=== PATIENT | female | born 1945 | race Caucasian/White ===

== ENCOUNTER 2020-04-02 19:46 | Emergency (ER) | payer MEDICARE, OTHER ==
[~2020-04-02] VITALS: Ht 154 cm; Wt 698.8 kg
--- NOTE | 2020-04-02 19:57 | ED Abdominal Pain ---
General Chief Complaint: Abdominal/GI Problems Stated Complaint: ABD PAIN,VOMITING Source of Information: Patient, Old Records, RN/MD Exam Limitations: No Limitations History of Present Illness Date Seen by Provider: Apr 02, 2020 Time Seen by Provider: 19:55 Initial Comments This patient is a 75-year-old female presents to the emergency department complaining of abdominal pain. Patient states she was seen in urgent care earlier today and diagnosed with urinary tract infection and started on Bactrim. Patient states her hurt in her abdomen in the right flank barnard across her midabdomen. Patient also describes dyspnea on exertion but has had this for some time and has an appointment with her mill controller tomorrow. We'll do medical evaluation treatment is needed. Patient denies fever. Timing/Duration: 1-3 Hours Severity/Quality: Mild Location: Epigastric Radiation: No Radiation Activities at Onset: Activity Associated Symptoms: Denies Symptoms Allergies and Home Medications Allergies Coded Allergies: No Known Allergies (Verified Allergy, Unknown, 04/02/20) Patient Home Medication List Home Medication List Reviewed: Yes Review of Systems Review of Systems Constitutional: No no symptoms reported; see HPI; No chills, No diaphoresis, No dizziness, No fever, No malaise, No weakness, No weight gain, No weight loss, No other EENTM: No No Symptoms Reported, No See HPI, No Blurred Vision, No Double Vision, No Eye Pain, No Eye Tearing, No Ear Drainage, No Ear Pain, No Mouth Pain, No Mouth Swelling, No Nose Congestion, No Nose Pain, No Throat Pain, No Throat Swelling, No Other Respiratory: Denies No Symptoms Reported; See HPI; Denies Cough, Denies Orthopnea; Shortness of Air, SOA With Exertion; Denies SOA at Rest, Denies Stridor, Denies Wheezing, Denies Other Cardiovascular: Denies No Symptoms Reported, Denies See HPI, Denies Chest Pain, Denies Edema, Denies Irregular Heart Rate, Denies Lightheadedness, Denies Palpitations, Denies Syncope, Denies Other Gastrointestinal: Denies No Symptoms Reported, Denies See HPI; Abdomen Distended; Denies Abdominal Pain, Denies Blood Streaked Stools, Denies Constipated, Denies Diarrhea, Denies Difficulty Swallowing, Denies Nausea, Denies Poor Appetite, Denies Poor Fluid Intake, Denies Rectal Bleeding, Denies Vomiting, Denies Other Genitourinary: No Symptoms Reported; Denies See HPI, Denies Burning, Denies Discharge, Denies Drainage; Frequency; Denies Flank Pain, Denies Hematuria, Denies Incontinence, Denies Pain, Denies Urgency, Denies Other Musculoskeletal: No no symptoms reported, No see HPI, No back pain, No gout, No joint pain, No joint swelling, No muscle pain, No muscle stiffness, No muscle cramps, No muscle twitching, No muscle weakness, No neck pain, No other Skin: No no symptoms reported, No see HPI, No change in color, No change in hair/nails, No dryness, No hx of skin cancer, No lesions, No lumps, No pruritus, No rash, No other All Other Systems Reviewed Negative Unless Noted: Yes Past Nmxgkky-Idkoxe-Snjvyy Hx Patient Social History Recent Foreign Travel: No Contact w/Someone Who Travel: No Physical Exam Vital Signs Vital Signs - First Documented 04/02/20 20:00 Temp 36.7 Pulse 66 Resp 12 B/P (MAP) 160/87 (111) Pulse Ox 96 O2 Delivery Room Air Capillary Refill : Height/Weight/BMI Height: '" Weight: lbs. oz. kg; BMI Method: General Appearance: WD/WN, no apparent distress Respiratory: chest non-tender, lungs clear, normal breath sounds, no respiratory distress, no accessory muscle use Cardiovascular: normal peripheral pulses, regular rate, rhythm, no edema, no gallop, no JVD, no murmur Gastrointestinal: normal bowel sounds, non tender, soft, no organomegaly, no pulsatile mass Neurologic/Psychiatric: electric blanket packer II-XII nml as tested, no motor/sensory deficits, alert, normal mood/affect, oriented x 3 Skin: normal color, warm/dry Progress/Results/Core Measures Results/Orders Lab Results Laboratory Tests Test 04/02/20 20:00 Range/Units White Blood Count 13.4 H 4.3-11.0 10^3/uL Red Blood Count 4.68 4.35-5.85 10^6/uL Hemoglobin 14.4 11.5-16.0 G/DL Hematocrit 41 35-52 % Mean Corpuscular Volume 88 80-99 FL Mean Corpuscular Hemoglobin 31 25-34 PG Mean Corpuscular Hemoglobin Concent 35 32-36 G/DL Red Cell Distribution Width 11.8 10.0-14.5 % Platelet Count 199 130-400 10^3/uL Mean Platelet Volume 9.5 7.4-10.4 FL Neutrophils (%) (Auto) 81 H 42-75 % Lymphocytes (%) (Auto) 7 L 12-44 % Monocytes (%) (Auto) 11 0-12 % Eosinophils (%) (Auto) 1 0-10 % Basophils (%) (Auto) 0 0-10 % Neutrophils # (Auto) 10.8 H 1.8-7.8 X 10^3 Lymphocytes # (Auto) 0.9 L 1.0-4.0 X 10^3 Monocytes # (Auto) 1.4 H 0.0-1.0 X 10^3 Eosinophils # (Auto) 0.1 0.0-0.3 10^3/uL Basophils # (Auto) 0.1 0.0-0.1 10^3/uL Neutrophils % (Manual) 81 % Lymphocytes % (Manual) 10 % Monocytes % (Manual) 7 % Eosinophils % (Manual) 0 % Basophils % (Manual) 1 % Band Neutrophils 1 % Sodium Level 137 135-145 MMOL/L Potassium Level 4.0 3.6-5.0 MMOL/L Chloride Level 104 98-107 MMOL/L Carbon Dioxide Level 19 L 21-32 MMOL/L Anion Gap 14 5-14 MMOL/L Blood Urea Nitrogen 12 7-18 MG/DL Creatinine 0.81 0.60-1.30 MG/DL Estimat Glomerular Filtration Rate > 60 BUN/Creatinine Ratio 15 Glucose Level 121 H 70-105 MG/DL Calcium Level 10.0 8.5-10.1 MG/DL Corrected Calcium 9.7 8.5-10.1 MG/DL Total Bilirubin 0.8 0.1-1.0 MG/DL Aspartate Amino Transf (AST/SGOT) 17 5-34 U/L Alanine Aminotransferase (ALT/SGPT) 13 0-55 U/L Alkaline Phosphatase 103 40-136 U/L Troponin I < 0.30 <0.30 NG/ML Pro-B-Type Natriuretic Peptide 343.6 H <75.0 PG/ML Total Protein 6.8 6.4-8.2 GM/DL Albumin 4.4 3.2-4.5 GM/DL Lipase 56 8-78 U/L My Orders Orders - KIERA TOTH MD Ed Iv/Invasive Line Start (7/27/20 19:54) Cbc With Automated Diff (04/02/20 19:54) Comprehensive Metabolic Panel (04/02/20 19:54) Lipase (04/02/20 19:54) Probnp Fs (04/02/20 19:54) Troponin I Fs (04/02/20 19:54) Ekg Tracing (04/02/20 19:54) Acute Abd Series (04/02/20 19:54) Ns Iv 500 Ml (Sodium Chloride 0.9%) (04/02/20 20:06) Ondansetron Injection (Zofran Injectio (04/02/20 20:15) Ketorolac Injection (Toradol Injection) (04/02/20 20:15) Manual Differential (04/02/20 20:00) Medications Given in ED Current Medications Medications Dose Ordered Sig/Jm Route Start Time Stop Time Status Last Admin Dose Admin Ketorolac Tromethamine 15 mg ONCE ONCE IV 04/02/20 20:15 04/02/20 20:16 DC 04/02/20 20:20 15 MG Ondansetron HCl 4 mg ONCE ONCE IVP 04/02/20 20:15 04/02/20 20:16 DC 04/02/20 20:20 4 MG Vital Signs/I&O 04/02/20 20:00 Temp 36.7 Pulse 66 Resp 12 B/P (MAP) 160/87 (111) Pulse Ox 96 O2 Delivery Room Air Progress Progress Note : Time: 21:27 Progress Note Negative evaluation in the emergency department for anything acute. Patient had a urinary tract infection diagnosed earlier today she did not repeat the urine in the emergency department. Patient believes that she is not tolerating the antibiotics back, they gave her earlier. Patient did not have any abdominal pain until that. We did discuss at length with patient about options. Patient states pain is much better after taking Toradol. We will change patient's antibiotics to Keflex twice daily for the next 5 days. Patient is to continue all of her home medications and follow-up with her mill controller as scheduled this week. Patient is also to follow up with her PCP. Patient be discharged home Initial ECG Impression Date: Apr 02, 2020 Initial ECG Impression Time: 20:21 Initial ECG Rate: 63 Initial ECG Rhythm: Normal Sinus Initial ECG Intervals: TN Initial ECG Impression: Nonspecific Changes Comment Sinus rhythm with a prolonged prolonged TN interval borderline left axis deviation nonspecific T-wave changes. Nondiagnostic EKG. Departure Impression Primary Impression: Abdominal pain Additional Impression: Urinary tract infection Disposition: 01 HOME, SELF-CARE Condition: Stable Departure-Patient Inst. Decision time for Depature: 21:28 Referrals: KOMAL HAINES APRN (PCP) Primary Care Physician Patient Instructions: Urinary Tract Infection, Adult (DC), Severe Abdominal Pain, Adult (DC) Add. Discharge Instructions: Encourage by mouth fluids. Advance diet as tolerated. Stop anabiotic sever given today. We'll replace with Keflex twice daily. May start in the morning. Take all medications as instructed. Follow-up with your PCP in 2-3 days and follow-up with her mill controller this week as scheduled. All discharge instructions reviewed with patient and/or family. Voiced understanding. Scripts Diclofenac Sodium (Diclofenac Sodium) 75 Mg Tablet.dr 75 MG PO BID for 10 Days, #20 TAB 0 Refills Prov: KIERA TOTH MD 04/02/20 Cephalexin (Cephalexin) 500 Mg Tablet 500 MG PO BID, #10 TAB 0 Refills Prov: KIERA TOTH MD 04/02/20 KIERA TOTH MD Apr 02, 2020 19:57
[2020-04-02] MEDS ORDERED: NS IV 500 ML 500 ML IV STA (20:06)
[2020-04-02] MEDS ORDERED: KETOROLAC 60 MG/2 ML VIAL IV ONE (20:15)
[2020-04-02] MEDS ORDERED: ONDANSETRON 4 MG/2 ML (SDV) Z0FRAN IVP ONE (20:15)
[2020-04-02 20:26] LABS: WHITE BLOOD COUNT 13.4 10^3/uL (4.3-11.0)
[2020-04-02 20:27] LABS: BASOPHILS % (AUTO) 0 % (0-10); EOSINOPHILS % (AUTO) 1 % (0-10); HEMATOCRIT 41 % (35-52); HEMOGLOBIN 14.4 G/DL (11.5-16.0); LYMPHOCYTES % (AUTO) 7 % (12-44); MEAN CORPUSCULAR HEMOGLOBIN 31 PG (25-34); MEAN CORPUSCULAR HGB CONC 35 G/DL (32-36); MEAN CORPUSCULAR VOLUME 88 FL (80-99); MEAN PLATELET VOLUME 9.5 FL (7.4-10.4); MONOCYTES % (AUTO) 11 % (0-12); NEUTROPHILS % (AUTO) 81 % (42-75); PLATELET COUNT 199 10^3/uL (130-400); RED CELL DISTRIBUTION WIDTH 11.8 % (10.0-14.5)
[2020-04-02 20:28] LABS: BASOPHILS # (AUTO) 0.1 10^3/uL (0.0-0.1); EOSINOPHILS # (AUTO) 0.1 10^3/uL (0.0-0.3); LYMPHOCYTES # (AUTO) 0.9 X 10^3 (1.0-4.0); MONOCYTES # (AUTO) 1.4 X 10^3 (0.0-1.0); NEUTROPHILS # (AUTO) 10.8 X 10^3 (1.8-7.8)
--- NOTE | 2020-04-02 20:30 | Diagnostic Imaging Report ---
INDICATION: Abdominal pain Lungs appear clear, bilaterally. Overall bowel gas pattern is unremarkable. Surgical clip is seen in the right lower quadrant. There are also surgical findings in the right hip with degenerative findings in the left hip. Calcifications in the right mid abdomen may represent renal stones. IMPRESSION: No definite acute abnormality is identified. Dictated by: Dictated on workstation # [id number]
[2020-04-02 20:56] LABS: BILIRUBIN,TOTAL 0.8 MG/DL (0.1-1.0); BUN/CREATININE RATIO 15; CARBON DIOXIDE 19 MMOL/L (21-32); CHLORIDE 104 MMOL/L (98-107); CREATININE SERUM 0.81 MG/DL (0.60-1.30); GFR ESTIMATED > 60; GLUCOSE 121 MG/DL (70-105); SODIUM 137 MMOL/L (135-145)
[2020-04-02 20:57] LABS: ALANINE AMINOTRANSFERASE 13 U/L (0-55); ALBUMIN 4.4 GM/DL (3.2-4.5); ALKALINE PHOSPHATASE 103 U/L (40-136); LIPASE 56 U/L (8-78); TOTAL PROTEIN 6.8 GM/DL (6.4-8.2)
[2020-04-02 21:12] LABS: BAND NEUTROPHILS 1 %; BASOPHILS % (MANUAL) 1 %; EOSINOPHILS % (MANUAL) 0 %; LYMPHOCYTES % (MANUAL) 10 %; MONOCYTES % (MANUAL) 7 %; NEUTROPHILS % (MANUAL) 81 %
[2020-04-02] MEDS ORDERED: DICL75TA2 PO (21:29)
[2020-04-02] MEDS ORDERED: CEPH500T PO (21:29)
[2020-04-02 21:32] VITALS: BP 164/81
--- OUTSIDE RECORDS SUMMARY | 2020-04-02 21:47 | XMS REPORT | Continuity of Care Document ---
Author Organization Unknown Address Unknown Phone Unavailable Allergies There is no data. Medications There is no data. Problems There is no data. Procedures There is no data. Results Test Result Range LIPID PANEL - 03/03/19 08:11 CHOLESTEROL, TOTAL 167 mg/dL <200 HDL CHOLESTEROL 44 mg/dL >50 TRIGLYCERIDES 181 mg/dL <150 LDL-CHOLESTEROL 95 mg/dL (calc) NRG CHOL/HDLC RATIO 3.8 (calc) <5.0 NON HDL CHOLESTEROL 123 mg/dL (calc) <13 0 CMP - 03/03/19 08:11 GLUCOSE 92 mg/dL 65-99 UREA NITROGEN (BUN) 16 mg/dL 7-25 CREATININE 0.73 mg/dL 0.60-0.93 eGFR NON-AFR. LAO 82 mL/min/1.73m2 > OR = 60 eGFR 95 mL/min/1.73m2 > OR = 60 BUN/CREATININE RATIO NOT APPLICABLE (calc) 6-22 SODIUM 144 mmol/L 135-146 POTASSIUM 4.3 mmol/L 3.5-5.3 CHLORIDE 108 mmol/L 98-110 CARBON DIOXIDE 26 mmol/L 20-32 CALCIUM 9.9 mg/dL 8.6-10.4 PROTEIN, TOTAL 6.7 g/dL 6.1-8.1 ALBUMIN 4.6 g/dL 3.6-5.1 GLOBULIN 2.1 g/dL (calc) 1.9-3.7 ALBUMIN/GLOBULIN RATIO 2.2 (calc) 1.0-2. 5 BILIRUBIN, TOTAL 0.8 mg/dL 0.2-1.2 ALKALINE PHOSPHATASE 108 U/L 33-130 AST 20 U/L 10-35 ALT 16 U/L 6-29 CBC w/MANUAL DIFF - 03/03/19 08:11 WHITE BLOOD CELL COUNT 6.3 Thousand/uL 3 .8-10.8 RED BLOOD CELL COUNT 4.98 Million/uL 3.8 0-5.10 HEMOGLOBIN 15.3 g/dL 11.7-15.5 HEMATOCRIT 46.4 % 35.0-45.0 MCV 93.2 fL 80.0-100.0 MCH 30.7 pg 27.0-33.0 MCHC 33.0 g/dL 32.0-36.0 RDW 12.5 % 11.0-15.0 PLATELET COUNT 220 Thousand/uL 140-400 MPV 9.4 fL 7.5-12.5 ABSOLUTE NEUTROPHILS 3793 cells/uL 1500- 7800 ABSOLUTE MONOCYTES 353 cells/uL 200-950 ABSOLUTE EOSINOPHILS 233 cells/uL 15-500 ABSOLUTE BASOPHILS 57 cells/uL 0-200 NEUTROPHILS 60.2 % NRG LYMPHOCYTES 27.8 % NRG MONOCYTES 5.6 % NRG EOSINOPHILS 3.7 % NRG BASOPHILS 0.9 % NRG ABSOLUTE BAND NEUTROPHILS 113 cells/uL 0 -750 ABSOLUTE LYMPHOCYTES 1751 cells/uL 850-3 900 BAND NEUTROPHILS 1.8 % NRG PLATELET ESTIMATION ADEQUATE ADEQUATE COMMENT(S) NRG TSH - 03/03/19 08:11 TSH 2.72 mIU/L 0.40-4.50 CBC w/MANUAL DIFF - 05/12/19 10:15 WHITE BLOOD CELL COUNT 6.0 Thousand/uL 3 .8-10.8 RED BLOOD CELL COUNT 4.78 Million/uL 3.8 0-5.10 HEMOGLOBIN 14.9 g/dL 11.7-15.5 HEMATOCRIT 44.6 % 35.0-45.0 MCV 93.3 fL 80.0-100.0 MCH 31.2 pg 27.0-33.0 MCHC 33.4 g/dL 32.0-36.0 RDW 12.1 % 11.0-15.0 PLATELET COUNT 232 Thousand/uL 140-400 MPV 9.3 fL 7.5-12.5 ABSOLUTE NEUTROPHILS 3318 cells/uL 1500- 7800 ABSOLUTE MONOCYTES 510 cells/uL 200-950 ABSOLUTE EOSINOPHILS 126 cells/uL 15-500 ABSOLUTE BASOPHILS 0 cells/uL 0-200 NEUTROPHILS 55.3 % NRG LYMPHOCYTES 34.1 % NRG MONOCYTES 8.5 % NRG EOSINOPHILS 2.1 % NRG BASOPHILS 0 % NRG ABSOLUTE LYMPHOCYTES 2046 cells/uL 850-3 900 PLATELET ESTIMATION ADEQUATE ADEQUATE COMMENT(S) NRG TSH - 05/12/19 10:15 TSH 1.68 mIU/L 0.40-4.50 CMP - 08/19/19 10:31 GLUCOSE 93 mg/dL 65-99 UREA NITROGEN (BUN) 14 mg/dL 7-25 CREATININE 0.75 mg/dL 0.60-0.93 eGFR NON-AFR. LAO 80 mL/min/1.73m2 > OR = 60 eGFR 92 mL/min/1.73m2 > OR = 60 BUN/CREATININE RATIO NOT APPLICABLE (calc) 6-22 SODIUM 140 mmol/L 135-146 POTASSIUM 4.1 mmol/L 3.5-5.3 CHLORIDE 108 mmol/L 98-110 CARBON DIOXIDE 26 mmol/L 20-32 CALCIUM 10.2 mg/dL 8.6-10.4 PROTEIN, TOTAL 6.6 g/dL 6.1-8.1 ALBUMIN 4.4 g/dL 3.6-5.1 GLOBULIN 2.2 g/dL (calc) 1.9-3.7 ALBUMIN/GLOBULIN RATIO 2.0 (calc) 1.0-2. 5 BILIRUBIN, TOTAL 0.7 mg/dL 0.2-1.2 ALKALINE PHOSPHATASE 122 U/L 33-130 AST 17 U/L 10-35 ALT 13 U/L 6 LIPID PANEL - 10/31/19 08:22 CHOLESTEROL, TOTAL 176 mg/dL <200 HDL CHOLESTEROL 42 mg/dL > OR = 50 TRIGLYCERIDES 200 mg/dL <150 LDL-CHOLESTEROL 102 mg/dL (calc) NRG CHOL/HDLC RATIO 4.2 (calc) <5.0 NON HDL CHOLESTEROL 134 mg/dL (calc) <13 0 CMP - 10/31/19 08:22 GLUCOSE 102 mg/dL 65-99 UREA NITROGEN (BUN) 13 mg/dL 7-25 CREATININE 0.74 mg/dL 0.60-0.93 eGFR NON-AFR. LAO 81 mL/min/1.73m2 > OR = 60 eGFR 94 mL/min/1.73m2 > OR = 60 BUN/CREATININE RATIO NOT APPLICABLE (calc) 6-22 SODIUM 141 mmol/L 135-146 POTASSIUM 4.5 mmol/L 3.5-5.3 CHLORIDE 107 mmol/L 98-110 CARBON DIOXIDE 26 mmol/L 20-32 CALCIUM 10.2 mg/dL 8.6-10.4 PROTEIN, TOTAL 6.7 g/dL 6.1-8.1 ALBUMIN 4.6 g/dL 3.6-5.1 GLOBULIN 2.1 g/dL (calc) 1.9-3.7 ALBUMIN/GLOBULIN RATIO 2.2 (calc) 1.0-2. 5 BILIRUBIN, TOTAL 0.9 mg/dL 0.2-1.2 ALKALINE PHOSPHATASE 114 U/L 37-153 AST 17 U/L 10-35 ALT 15 U/L 6-29 LIPID PANEL - 02/01/20 07:10 CHOLESTEROL, TOTAL 157 mg/dL <200 HDL CHOLESTEROL 42 mg/dL > OR = 50 TRIGLYCERIDES 182 mg/dL <150 LDL-CHOLESTEROL 87 mg/dL (calc) NRG CHOL/HDLC RATIO 3.7 (calc) <5.0 NON HDL CHOLESTEROL 115 mg/dL (calc) <13 0 CMP - 02/01/20 07:10 GLUCOSE 98 mg/dL 65-99 UREA NITROGEN (BUN) 14 mg/dL 7-25 CREATININE 0.83 mg/dL 0.60-0.93 eGFR NON-AFR. LAO 70 mL/min/1.73m2 > OR = 60 eGFR 81 mL/min/1.73m2 > OR = 60 BUN/CREATININE RATIO NOT APPLICABLE (calc) 6-22 SODIUM 140 mmol/L 135-146 POTASSIUM 4.0 mmol/L 3.5-5.3 CHLORIDE 107 mmol/L 98-110 CARBON DIOXIDE 25 mmol/L 20-32 CALCIUM 10.4 mg/dL 8.6-10.4 PROTEIN, TOTAL 6.5 g/dL 6.1-8.1 ALBUMIN 4.6 g/dL 3.6-5.1 GLOBULIN 1.9 g/dL (calc) 1.9-3.7 ALBUMIN/GLOBULIN RATIO 2.4 (calc) 1.0-2. 5 BILIRUBIN, TOTAL 0.5 mg/dL 0.2-1.2 ALKALINE PHOSPHATASE 102 U/L 37-153 AST 22 U/L 10-35 ALT 16 U/L 6-29 Encounters ACCT No. Visit Date/Time Discharge Status Pt. Type Provider Facility Loc./Unit Complaint [id number] 04/02/2020 13:20:00 [id number] 02/01/2020 07:00:00 Document Registration [id number] 10/31/2019 08:15:00 Document Registration [id number] 08/19/2019 09:15:00 Document Registration [id number] 05/12/2019 10:00:00 Document Registration [id number] 03/03/2019 08:15:00 Document Registration
--- OUTSIDE RECORDS SUMMARY | 2020-04-02 21:47 | XMS REPORT ---
Author Author Oma SWIFT Organization [facility] Address [address] [place] [address] Care Team Providers Care Oracle Programmer Name Role Phone JAZ SWIFT Unavailable PROBLEMS Type Condition ICD9-CM Code VQC65-NH Code Onset Dates Condition S tatus SNOMED Code Problem Acute appendicitis 540.9 Feb, 0 33611219 Problem Postoperative examination V67.00 Jul, 0 639824071 Problem Acute appendicitis K35.80 Feb, 0 99439649 Problem Status post colonoscopy V45.89 02 Dec, 2014 0 [id number] Problem Postop check V67.00 May, 0 1338 20494 Problem Diverticulosis 562.10 Dec, 0 39 3722743 Problem Essential hypertension 401.9 Sep, 0 28535216 Problem Hyperlipidemia 272.4 Nov, 0 55 048467 Problem Mixed hyperlipidemia E78.2 Active [id number] Problem Postoperative examination Z09 Jul, 0 144076056 Problem Primary hypertension I10 Active 39222425 Problem Status post colonoscopy Z98.890 Dec, 0 [id number] Problem Postop check Z09 May, 0 1338 22409 Problem Diverticulosis K57.90 Dec, 0 39 0677158 Problem Essential hypertension I10 Sep, 0 99576267 Problem Hyperlipidemia E78.5 Nov, 0 55 152722 ALLERGIES No Known Allergies ENCOUNTERS Encounter Location Date Diagnosis [address] [address] Oct, Primary hypertension I10 ; Mixed hyperli pidemia E78.2 and History of renal stone Z87.[address] [address] Oct, [facility] [address] [facility] [id number] [address] [place] [address] Aug, [facility] [address] [id number] [address] [place] [id number] Aug, [facility] [address] [id number] [address] [place] [id number] Jul, [facility] [address] [facility] [id number] [address] [place] [phone] Jul, [facility] [address] [facility] [id number] [address] [place] [phone] Jul, [facility] [address] [facility] [id number] [address] [place] [phone] Jul, IMMUNIZATIONS No Known Immunizations SOCIAL HISTORY Never Assessed REASON FOR VISIT Establish Care, lab 10/04/2018 angelia VERDUGO, discuss US from Jaret brambila & issues PLAN OF CARE Activity Details Follow Up 3 Months Reason: VITAL SIGNS Height 61 in 2018-11-03 Weight 165 lbs 2018-11-03 Temperature 99.4 degrees Fahrenheit 2018-11-03 BMI 31.17 kg/m2 2018-11-03 Blood pressure systolic 130 mmHg 2018-11-03 Blood pressure diastolic 90 mmHg 2018-11-03 MEDICATIONS Medication Instructions Dosage Frequency Start Date End Date Duration S tatus Docusate Sodium 100 MG Orally Once a day 1 tablet 24h 30 day(s) Active Aspirin 81 MG Orally Once a day 1 tablet 24h 30 day( s) Active Metoprolol Tartrate 50 MG Orally Twice a day 1 tablet with food 12h Active Simvastatin 20 MG Orally Once a day 1 tablet in the evening 24h Active Fish Oil Active Ibuprofen 200 MG Orally every 6 hours PRN 1 tablet with food or milk as needed Active RESULTS No Results PROCEDURES Procedure Date Ordered Result Body Site [facility] VISIT NEW PATIENT Nov 03, 2018 INSTRUCTIONS MEDICATIONS ADMINISTERED No Known Medications MEDICAL (GENERAL) HISTORY Type Description Date Medical History hyperlipidemia Medical History essential HTN Medical History diverticulosis Medical History kidney stones Surgical History colonoscopy Surgical History hysterectomy Surgical History appendectomy Surgical History fractured tailbone Hospitalization History hysterectomy Hospitalization History appendectomy
--- OUTSIDE RECORDS SUMMARY | 2020-04-02 21:47 | XMS REPORT ---
Author Author Oma Sultana Organization [facility] Address [address] [place] [address] Care Team Providers Care Executive Meeting Manager Name Role Phone JAZ Sultana Unavailable PROBLEMS Type Condition ICD9-CM Code HII78-[id number] Code Onset Dates Condition S tatus SNOMED Code Problem Status post colonoscopy Z98.890 Dec, Act yaima [id number] Problem Postoperative examination Z09 Jul, A ctive [id number] Problem Diverticulosis K57.90 Dec, Active 39 8820812 Problem Primary osteoarthritis of right hip M16.11 Active 765167005 Problem Acute appendicitis K35.80 13 Feb, 2015 Active 12234396 Problem Type 2 diabetes mellitus wit h diabetic neuropathy, unspecified whether oil heaterman insulin use E11.40 Active 985219 [id number] Problem Postop check Z09 May, Active 1338 07658 Problem Essential hypertension I10 Sep, Acti ve 39485227 Problem Hyperlipidemia E78.5 Nov, Active 55 284978 Problem Mixed hyperlipidemia E78.2 Active 199870768 Problem Primary hypertension I10 Active [id number] ALLERGIES No Known Allergies ENCOUNTERS Encounter Location Date Diagnosis [facility] [address] [id number] [place] [address] January, [address] [place] [address] Nov, [address] [place] [address] Oct, Onychomycosis B35.1 and Esse ntial hypertension I10 [facility] [address] [id number] [place] [address] Oct, Onychomycosis B35.1 and Type 2 diabetes mellitus with diabetic neuropathy, unspecified whether jail insulin use E11.40 [facility] [address] [place] [address] Aug, Essential hypertension I10 ; Hyperlipidemia E78.5 and Primary osteoarthritis of right hip M16.11 [facility] [address] [place] [address] Aug, Hyperlipidemia E78.5 and Ess ential hypertension I10 [address] [place] [address] Jul, Onychomycosis B35.1 [address] [place] [address] Jul, [address] [place] [address] May, Essential hypertension I10 a nd Hyperlipidemia E78.5 [address] [place] [address] May, Screening mammogram, encount er for Z12.31 [facility] [address] [place] [address] May, Hyperlipidemia E78.5 and Ess ential hypertension I10 [facility] [address] [place] [address] 08 May, 2019 Cellulitis of left upper ext remity L03.114 ; Insect bite (nonvenomous) of left forearm, initial encounter S50.862A and Bitten or stung by nonvenomous insect and other nonvenomous arthropods, initial encounter W57.XXXA [facility] [address] [place] [address] 05 May, 2019 Hyperlipidemia E78.5 and Ess ential hypertension I10 [facility] [address] [place] [address] May, Hyperlipidemia E78.5 and Ess ential hypertension I10 [facility] [address] [place] [address] Mar, Infection of toe L08.[address] [place] [address] Mar, [address] [place] [address] Feb, Hyperlipidemia E78.5 and Susan kevin hypertension I10 [address] [place] [address] Feb, Hyperlipidemia E78.5 ; Prima ry hypertension I10 and Primary osteoarthritis of right hip M16.11 [address] [place] [address] Nov, Primary osteoarthritis of ri ght hip M16.11 ; Essential hypertension I10 ; Mixed hyperlipidemia E78.2 and Hydronephrosis determined by ultrasound N13.30 [address] [place] [address] Oct, Primary hypertension I10 ; M ixed hyperlipidemia E78.2 and History of renal stone Z87.442 [address] [place] [address] Oct, [facility] [id number] [place] [address] Aug, [facility] [address] [address] Aug, [facility] [address] [address] Jul, [facility] [address] [address] Jul, [facility] [address] [address] Jul, [facility] [address] [address] Jul, IMMUNIZATIONS No Known Immunizations SOCIAL HISTORY Never Assessed REASON FOR VISIT F/u, c/o needing medication refill, pt has been seeing Dr Liao at [facility]-they prescribed meds but has told the pt she will need to see primary for fur ther refills. planning to have right hip replacement in the fall, PLAN OF CARE Activity Details Follow Up prn Reason: VITAL SIGNS Height 61 in 2018-12-01 Weight 166 lbs 2018-12-01 Temperature 99.4 degrees Fahrenheit 2018-12-01 BMI 31.36 kg/m2 2018-12-01 Blood pressure systolic 140 mmHg 2018-12-01 Blood pressure diastolic 82 mmHg 2018-12-01 MEDICATIONS Medication Instructions Dosage Frequency Start Date End Date Duration S tatus Fish Oil Active Meloxicam 7.5 MG Orally 2 times daily 1 tablet 9 0 days Active Ibuprofen 200 MG Orally every 6 hours PRN 1 tablet with food or milk as needed Active Simvastatin 20 MG Orally Once a day 1 tablet in the evening 24h Active Docusate Sodium 100 MG Orally Once a day 1 tablet 24h 30 day(s) Active Aspirin 81 MG Orally Once a day 1 tablet 24h 30 day( s) Active Gabapentin 100 MG Orally at HS 1 capsule 90 days Active Metoprolol Tartrate 50 MG Orally Twice a day 1 tablet with food 12h Active RESULTS No Results PROCEDURES Procedure Date Ordered Result Body Site [facility] VISIT ESTABLISHED PATIENT December 01, 2018 INSTRUCTIONS MEDICATIONS ADMINISTERED No Known Medications MEDICAL (GENERAL) HISTORY Type Description Date Medical History hyperlipidemia Medical History essential HTN Medical History diverticulosis Medical History kidney stones Surgical History colonoscopy Surgical History hysterectomy Surgical History appendectomy Surgical History fractured tailbone Surgical History total right hip replacement 07/06/2019 Hospitalization History hysterectomy Hospitalization History appendectomy Hospitalization History surgery
== END 2020-04-02 21:32 | disposition home or self-care (01) ==
LOC: ER FS 19:47
DX: R10.13 Epigastric pain (principal); N39.0 Urinary tract infection, site not specified
CPT/HCPCS: 36415; 74022; 80053; 83690; 83880; 84484; 85007; 85027; 93005

== ENCOUNTER → 2020-04-11 | Outpatient (CLI) | payer MEDICARE, OTHER ==
[~2020-04-11] MED LIST: CEPH500T PO; DICL75TA2 PO
--- NOTE | 2020-04-11 12:48 | Diagnostic Imaging Report ---
PROCEDURE: CT urinary tract, rule out kidney stone. TECHNIQUE: Multiple contiguous axial images were obtained through the abdomen and pelvis without the use of intravenous contrast. Auto Exposure Controls were utilized during the CT exam to meet ALARA standards for radiation dose reduction. INDICATION: Right-sided abdominal pain. History of kidney stones. COMPARISON: None. FINDINGS: Included portions of the lung bases are clear. CT abdomen: There is colonic diverticulosis, but no CT evidence of acute diverticulitis. Small bowel loops are nondistended. Normal appendix cannot be adequately identified, but appears to be surgically absent. Right ureter cannot be followed in its entirety. There is image degradation secondary to beam hardening artifact from right hip prosthesis. Right ureter however is decompressed. In contrast to this, there is moderate dilatation of the right renal pelvis and calyces. Nonobstructive renal calculi are noted within the inferior pole of the right kidney. No renal or ureteral calculi are seen on the left. Additionally, there is no hydronephrosis or other evidence of obstruction on the left. No focal renal masses are seen on this noncontrast exam. The adrenal glands, spleen, pancreas, and liver have an unremarkable noncontrast CT appearance. There is no loculated fluid collection, free fluid, nor free air within the abdomen. No abnormal mesenteric or retroperitoneal adenopathy is seen. There is moderate diffuse calcified aortic and arterial atherosclerosis. Osseous structures show no acute abnormalities. CT pelvis: Urinary bladder is heavily obscured secondary to metallic beam hardening artifact. No calculi are seen within the visualized portions of the urinary bladder. There is no loculated fluid collection, free fluid, nor free air within the pelvis. No abnormal lymph nodes are identified. Osseous structures show no acute abnormalities IMPRESSION: 1. Asymmetric moderate right-sided hydronephrosis. Right ureter cannot be followed in its entirety, specifically distally where it is obscured by metallic beam hardening artifact from right hip prosthesis. No calculi are seen within the visualized portions of the right ureter. Additionally, decompressed nature of the right ureter with otherwise distended appearance to the right renal pelvis and calyces raises concern for potential UPJ obstruction. Correlation with nuclear medicine Lasix scan may be of benefit. 2. Nonobstructive right renal calculi. Dictated by: Dictated on workstation # [id number]
== END ==
LOC: RAD FS 10:55
PROVIDERS: ATTEND Nurse Practitioner Family
DX: N20.0 Calculus of kidney (principal); N13.30 Unspecified hydronephrosis
CPT/HCPCS: 74176

== ENCOUNTER → 2020-04-19 | Outpatient (CLI) | payer MEDICARE, OTHER ==
--- NOTE | 2020-04-19 13:10 | Diagnostic Imaging Report ---
EXAMINATION: Abdomen 1 view HISTORY: Renal stone. COMPARISON: 04/02/2020. FINDINGS: Two small stones project over the lower pole of the right kidney. No left-sided stones are seen. No calcifications are seen in the expected location of the ureters. Right hip arthroplasty is present. No dilated bowel. IMPRESSION: 1. Small stones in the lower pole of the right kidney appears similar to prior CT. No left-sided stones are seen. Dictated by: Dictated on workstation # [id number]
== END ==
LOC: RAD 12:30
PROVIDERS: ATTEND Urology
DX: N20.0 Calculus of kidney (principal)
CPT/HCPCS: 74018

== ENCOUNTER → 2020-04-25 | Outpatient (CLI) | payer MEDICARE, OTHER ==
[~2020-04-25] MED LIST changes: +FUROSEMIDE 40 MG/4 ML INJ (LASIX) ONE
--- NOTE | 2020-04-27 07:50 | Diagnostic Imaging Report ---
INDICATION: Right UPJ obstruction. Patient was administered 5.5 mCi technetium 99m MAG3 intravenously and imaging over the abdomen was performed. Patient was given 40 mg of Lasix intravenously 15 minutes into the study. Comparison is made with recent CT study performed on 04/11/2020. Dynamic blood flow images demonstrate symmetric perfusion to both kidneys. There appears to be symmetric tubular uptake with fairly symmetric excretion of activity into both renal collecting systems. The right renal collecting system does appear more dilated in comparison to the left and does retain activity. While there is some accumulation of activity within the right renal collecting system, following Lasix administration there does appear to be some clearing of activity, suggestive of a dilated but nonobstructed system. Renogram curves are downgoing. Overall differential renal function is 51% for the left and 49% for the right. IMPRESSION: Findings most suggestive of a dilated but nonobstructed right urinary tract system. Dictated by: Dictated on workstation # [id number]
== END ==
LOC: CARD 08:20
PROVIDERS: ATTEND Urology
DX: N13.5 Crossing vessel and stricture of ureter without hydronephrosis (principal)
CPT/HCPCS: 78708; A9562

== ENCOUNTER 2020-05-07 05:47 | Outpatient (CLI) | payer MEDICARE, OTHER ==
[~2020-05-07] VITALS: Ht 154 cm; Wt 70.0 kg
[~2020-05-07 05:47] MED LIST changes: -FUROSEMIDE 40 MG/4 ML INJ (LASIX) ONE
[2020-05-07] MEDS ORDERED: SIMV20TA26 PO (09:28)
[2020-05-07] MEDS ORDERED: OMG1KC PO (09:28)
[2020-05-07] MEDS ORDERED: ASPI-999 PO (09:28)
[2020-05-07] MEDS ORDERED: MTP25TSR PO (09:28)
[2020-05-07] MEDS ORDERED: LISI-552 PO (09:28)
[2020-05-07] MEDS ORDERED: DOCU-238 PO (09:28)
[2020-05-08] MEDS ORDERED: TMSL.4C PO (10:25)
[2020-05-08] MEDS ORDERED: NITR-65 PO (10:25)
== END 2020-05-07 09:41 | disposition home or self-care (01) ==
LOC: PREOP 05:47
PROVIDERS: ATTEND Urology
DX: Z01.818 Encounter for other preprocedural examination (principal)

== ENCOUNTER 2020-05-08 08:05 | Day surgery (SDC) | payer MEDICARE, OTHER ==
[~2020-05-08] VITALS: Ht 154 cm; Wt 70.0 kg
[2020-05-08] VITALS (9 sets, daily range): BP systolic 132–169; BP diastolic 72–83
--- NOTE | 2020-05-08 08:02 | Progress Note-Pre Operative ---
Pre-Operative Progress Note H&P Reviewed The H&P was reviewed, patient examined and no changes noted. Date Seen by Provider: May 08, 2020 Time Seen by Provider: 09:00 Date H&P Reviewed: May 08, 2020 Time H&P Reviewed: 09:00 Pre-Operative Diagnosis: RT UPJ OBSTRUCTION NINA KING MD May 08, 2020 08:02
[~2020-05-08 08:05] MED LIST changes: +ASPI-999 PO; +DOCU-238 PO; +LISI-552 PO; +MTP25TSR PO; +OMG1KC PO; +SIMV20TA26 PO
[2020-05-08] MEDS ORDERED: LACTATED RINGERS 1,000 ML IV PRN (08:09)
--- NOTE | 2020-05-08 08:09 | Progress Note-Post Operative ---
Post-Operative Progess Note Surgeon (s)/Tinning Equipment Tender (s) Surgeon NINA KING MD Tinning Equipment Tender: NONE Pre-Operative Diagnosis RT UPJ OBSTRUCTION Post-Operative Diagnosis SAME Procedure & Operative Findings Date of Procedure 05/08/20 Procedure Performed/Findings CYSTOSCOP, RT RETROGRADE UROGRAM, AND INSERTION OF RT URETERAL STENT Anesthesia Type GENERAL Estimated Blood Loss Estimated blood loss (mL): NONE Specimens/Packing Specimens Removed NONE Packing: NONE NINA KING MD May 08, 2020 08:09
--- NOTE | 2020-05-08 08:10 | Discharge Inst-Urology ---
Discharge Inst-Urology Reconcile Patient Problems Problems Reviewed?: Yes Final Diagnosis RT UPJ OBSTRUCTION Patient Instructions/Follow Up Plan/Assessment/Instructions Please make appointment to been seen in office in 3 weeks. Increase oral fluids for 48 hours and then as needed. Diet and Activity as tolerated. If questions or concerns contact your physician Or seek help at emergency department. NINA KING MD May 08, 2020 08:10
[2020-05-08] MEDS ORDERED: MIDAZOLAM 2 MG/2 ML (VERSED) VIAL ONE (08:53)
[2020-05-08] MEDS ORDERED: ONDANSETRON 4 MG/2 ML (SDV) Z0FRAN ONE (08:53)
[2020-05-08] MEDS ORDERED: proPOfol 200 MG/20 ML (DIPRIVAN) VIAL IV ONE (08:53)
[2020-05-08] MEDS ORDERED: fentaNYL INJECTION 100 MCG/2 ML AMP ONE (08:53)
[2020-05-08] MEDS ORDERED: LIDOCAINE PF 2% 5 ML (XYLOCAINE) VIAL ONE (08:53)
[2020-05-08] MEDS ORDERED: cefTRIAXone FOR IV USE 1,000 MG in WATER (STERILE) FOR INJECTION 10 ML IV ONE (09:00)
[2020-05-08] MEDS ORDERED: cefTRIAXone 1,000 MG IV (ROCEPHIN) VIAL ONE (09:04)
[2020-05-08] MEDS ORDERED: WATER (STERILE) FOR INJECTION 10 ML ONE (09:04)
--- NOTE | 2020-05-08 09:15 | NUR ---
THIS RN PHONED VIANNEY, RN ID NURSE AT [phone] AND NO ANSWER. THIS RN LEFT VOICE MESSAGE WITH DETAILS OF PICC REMOVAL AND TO PHONE THIS RN FOR ANY QUESTIONS OR CONCERNS.
[2020-05-08] MEDS ORDERED: ONDANSETRON 4 MG/2 ML (SDV) Z0FRAN IVP PRN (10:15)
[2020-05-08] MEDS ORDERED: morphine INJ 10 MG/ML 1ML (SYR OR VIAL) IVP ONE (10:15)
[2020-05-08] MEDS ORDERED: TMSL.4C PO (10:25)
[2020-05-08] MEDS ORDERED: NITR-65 PO (10:25)
[2020-05-08] MEDS ORDERED: SEVOFLURANE (ULTANE) 15 ML INHAL SOLN ONE (10:28)
[2020-05-08] MEDS ORDERED: IOPAMIDOL 61% 30 ML (ISOVUE 300) VIAL IV ONE (10:30)
--- NOTE | 2020-05-08 10:37 | Anesthesia-General Post-Op ---
General Patient Condition Mental Status/LOC: Same as Preop Cardiovascular: Satisfactory Nausea/Vomiting: Absent Respiratory: Satisfactory Pain: Controlled Complications: Absent Post Op Complications Complications None Follow Up Care/Instructions Patient Instructions None needed. Anesthesia/Patient Condition Patient Condition Patient is doing well, no complaints, stable vital signs, no apparent adverse anesthesia problems. MARCELLUS CANNON DO May 08, 2020 10:37
--- NOTE | 2020-05-08 13:26 | OPERATIVE REPORT ---
DATE OF SERVICE: 05/08/2020 PREOPERATIVE DIAGNOSIS: Right ureteropelvic junction obstruction. POSTOPERATIVE DIAGNOSIS: Right ureteropelvic junction obstruction. OPERATION PERFORMED: Cystoscopy with right retrograde urogram and insertion of right ureteral stent. SURGEON: Osiel King MD ANESTHESIA: General. COMPLICATIONS: None. DESCRIPTION OF PROCEDURE: Under satisfactory general anesthesia, the patient in lithotomy position, genitalia were prepped and draped in the usual sterile fashion. Cystoscope was introduced in the bladder, which was essentially normal except for sluggish efflux on the right side. Using the foroblique lens, I passed a right ureteral catheter into the distal ureter and injected contrast. The ureter itself was normal and then there was a UPJ obstruction with ballooning of the pelvis and caliectasis. However, the contrast would flow from the pelvis and into ureter. I withdrew the catheter and ureter was emptying well. However, the pelvis and the calices remained dilated in full, but I could see contrast flowing from them into the ureter. I elected to leave a stent if that helps any symptoms or obstruction, so I passed a 6-Greenlandic 24 cm stent guided fluoroscopically all the way to the right renal pelvis, removed this guidewire, the stent was seen J'ing nicely proximally fluoroscopically and distally endoscopically. Bladder was evacuated and the cystoscope was removed. The patient tolerated the procedure and anesthesia well and was sent to recovery room in stable condition. PLAN: We will see her back in the office in three weeks. Plan to take the stent out in four weeks and manage accordingly. Job ID: [id number] DocumentID: [id number] Dictated Date: 05/08/2020 10:10:30 Filling And Stapling Machine Operator Date: 05/08/2020 13:24:15 Dictated By: OSIEL KING MD [facility]
== END 2020-05-08 11:45 | disposition home or self-care (01) ==
LOC: SDC 08:05
PROVIDERS: ATTEND Urology
DX: N13.5 Crossing vessel and stricture of ureter without hydronephrosis (principal); N20.0 Calculus of kidney; I10 Essential (primary) hypertension; E78.5 Hyperlipidemia, unspecified; E78.00 Pure hypercholesterolemia, unspecified; M19.91 Primary osteoarthritis, unspecified site; Z79.899 Other long term (current) drug therapy; Z79.82 Long term (current) use of aspirin; Z87.442 Personal history of urinary calculi; Z96.641 Presence of right artificial hip joint; Z11.2 Encounter for screening for other bacterial diseases
CPT/HCPCS: 52332; 76000; 87081; C2625

== ENCOUNTER → 2020-05-30 | Outpatient (CLI) | payer MEDICARE, OTHER ==
[~2020-05-30] MED LIST changes: +NITR-65 PO; +TMSL.4C PO
--- NOTE | 2020-05-30 12:22 | Diagnostic Imaging Report ---
PROCEDURE: CT abdomen and pelvis without contrast. TECHNIQUE: Multiple contiguous axial images were obtained through the abdomen and pelvis without the use of intravenous contrast. Auto Exposure Controls were utilized during the CT exam to meet ALARA standards for radiation dose reduction. INDICATION: Right UPJ obstruction, stent placement. Correlation is made with prior CT from 04/11/2020. FINDINGS: The lung bases are clear. The liver and gallbladder are unremarkable. No biliary ductal dilatation is seen. Pancreas and spleen are unremarkable. No adrenal mass is detected. Nonobstructing calculi lower pole right kidney are noted. There has been placement of a right-sided double-J nephroureteral stent extending from the right kidney into the urinary bladder. No definite calculi along the stent are identified. Left kidney is unremarkable. Aorta is calcified but not aneurysmal. Small and large bowel loops are normal caliber. There is no obstruction. There is no free fluid or fluid collection. There is a right hip prosthesis. IMPRESSION: Nonobstructing right renal calculi. There has been placement of a right double-J nephroureteral stent since prior CT. No definite calculi along the stent are identified. Dictated by: Dictated on workstation # [id number]
== END ==
LOC: RAD FS 09:42
PROVIDERS: ATTEND Urology
DX: Z46.6 Encounter for fitting and adjustment of urinary device (principal); N20.0 Calculus of kidney
CPT/HCPCS: 74176

== ENCOUNTER → 2020-06-21 | Outpatient (CLI) | payer MEDICARE, OTHER ==
--- NOTE | 2020-06-21 10:27 | Diagnostic Imaging Report ---
PROCEDURE: CT abdomen and pelvis without contrast. TECHNIQUE: Multiple contiguous axial images were obtained through the abdomen and pelvis without the use of intravenous contrast. Auto Exposure Controls were utilized during the CT exam to meet ALARA standards for radiation dose reduction. INDICATION: Prior history kidney stones. Patient had recent stent removal on the right. Comparison is made with prior CT from 05/30/2020. The lung bases are clear. Previously noted nonobstructing calculus right kidney is again noted and unchanged. Right-sided double-J nephroureteral stent has been removed. No definite ureteral calculi are detected. No bladder calculi are detected. There is no hydronephrosis. Left kidney is unremarkable. The liver and gallbladder are unremarkable. The pancreas, spleen and adrenal glands are unremarkable. Aorta is nonaneurysmal. Bowel loops are normal in caliber. There is no obstruction. There is no free fluid. A large amount of artifact through the pelvis is seen from patient's right hip prosthesis. IMPRESSION: 1. Nonobstructing right renal calculus. Previously noted right double-J nephroureteral stent has been removed. No ureteral calculi or hydronephrosis is detected. 2. No acute feature in the abdomen or pelvis is identified. Dictated by: Dictated on workstation # [id number]
== END ==
LOC: RAD FS 09:58
PROVIDERS: ATTEND Urology
DX: N13.5 Crossing vessel and stricture of ureter without hydronephrosis (principal); N20.0 Calculus of kidney; Z46.6 Encounter for fitting and adjustment of urinary device
CPT/HCPCS: 74176

== ENCOUNTER → 2021-06-14 | Outpatient (CLI) | payer MEDICARE, OTHER ==
[~2021-06-14] MED LIST changes: -DOCU-238 PO; +DOCU-26 PO; -LISI-552 PO; +LISI20TA26 PO
--- NOTE | 2021-06-14 08:24 | Diagnostic Imaging Report ---
EXAMINATION: CT abdomen and pelvis without contrast. TECHNIQUE: Multiple contiguous axial images were obtained through the abdomen and pelvis without the use of intravenous contrast. All CT scans use one or more of the following dose optimizing techniques: automated exposure control, MA and/or KvP adjustment based on patient size and exam type or iterative reconstruction. HISTORY: OBSTRUCTION COMPARISON: 06/21/2020 FINDINGS: Lung bases: The lung bases are clear. Solid organs: The liver is normal. The gallbladder is normal. There is no biliary ductal dilation. Pancreas is normal. Spleen is normal. Adrenal glands are normal. There is mild right hydronephrosis with redemonstrated abrupt tapering at the ureteropelvic junction suggesting stricture given its chronic nature. There are multiple nonobstructing right renal calculi measuring up to 0.6 cm. Left kidney is unremarkable without visualized calculus or hydronephrosis. Bowel: The stomach and small bowel are normal without obstruction. Colon is unremarkable. The appendix is nonvisualized and may be surgically absent. Peritoneum: There is no intraperitoneal free fluid or free air. No suspicious lymphadenopathy. Vasculature: Calcification of the aorta without aneurysm. Musculoskeletal: Degenerative changes of the spine without suspicious osseous lesion or compression fracture. Surgical changes from right hip arthroplasty. Pelvis: The uterus is surgically absent. No adnexal mass. The urinary bladder is normal. IMPRESSION: 1. Stable mild right hydronephrosis with findings suggestive of a right UPJ stricture given its stable appearance from 06/21/2020. 2. Nonobstructing right renal calculi measuring up to 0.6 cm. Dictated by: Dictated on workstation # [id number]
== END ==
LOC: RAD FS 07:50
PROVIDERS: ATTEND Urology
DX: N13.2 Hydronephrosis with renal and ureteral calculous obstruction (principal)
CPT/HCPCS: 74176